=== PATIENT | male | born 1995 | race African-American/Black ===

== ENCOUNTER 2017-06-26 16:51 | Emergency (ER) | payer OTHER ==
--- NOTE | 2017-06-26 16:54 | PDOC ---
History of Present Illness <Priti Valerio - Last Filed: 06/26/17 17:25> - General History Source: Patient Exam Limitations: No Limitations - History of Present Illness Initial Comments: 06/26/17 17:29 21 y.o male with no significant past medical history, who presents to the emergency room complaining of right eye redness and pain that began after accidentally getting elbowed in the eye while playing basketball 2 days ago. The patient states that his eye has become progressively more painful and red over the past couple of days. The pain is worse with blinking and is exacerbated when exposed to light. The patient denies changes double vision, blurred vision, or any other changes in vision. Denies floaters. Denies any other injuries. Denies headache, lightheadedness. Allergies: NKA <Iraida Mckoy - Last Filed: 06/26/17 17:30> - General Chief Complaint: Eye Problem Stated Complaint: RIGHT EYE PAIN Past History <Priti Valerio - Last Filed: 06/26/17 17:25> <Iraida Mckoy - Last Filed: 06/26/17 17:30> - Past Medical History Allergies/Adverse Reactions: Allergies Allergy/AdvReac Type Severity Reaction Status Date / Time No Known Allergies Allergy Verified 06/26/17 16:52 Home Medications: Ambulatory Orders NK [No Known Home Medication] 06/26/17 Review of Systems - Review of Systems Able to Perform ROS?: Yes Comments:: 06/26/17 17:29 GENERAL/CONSTITUTIONAL: No fever or chills. No weakness. HEAD, EYES, EARS, NOSE AND THROAT: +right eye redness and irritation. No change in vision. No ear pain or discharge. No sore throat. GASTROINTESTINAL: No nausea, vomiting, diarrhea or constipation. GENITOURINARY: No dysuria, frequency, or change in urination. CARDIOVASCULAR: No chest pain or shortness of breath. RESPIRATORY: No cough, wheezing, or hemoptysis. MUSCULOSKELETAL: No joint or muscle swelling or pain. No neck or back pain. SKIN: No rash NEUROLOGIC: No headache, vertigo, loss of consciousness, or change in strength/ sensation. ENDOCRINE: No increased thirst. No abnormal weight change. HEMATOLOGIC/LYMPHATIC: No anemia, easy bleeding, or history of blood clots. ALLERGIC/IMMUNOLOGIC: No hives or skin allergy. <Iraida Mckoy - Last Filed: 06/26/17 17:30> *Physical Exam - Vital Signs Last Vital Signs Temp Pulse Resp BP Pulse Ox 98.7 F 57 L 15 145/86 100 06/26/17 16:52 06/26/17 16:52 06/26/17 16:52 06/26/17 16:52 06/26/17 16:52 - Physical Exam Comments: 06/26/17 17:29 GENERAL: Awake, alert, and fully oriented, in no acute distress HEAD: No signs of trauma EYES: 20/20 OD, 20/30 OS, EOMI, PERRLA, +conjunctiva injection OD, Fluorescence testing was negative for corneal abrasion. Eyelids were everted and no foreign bodies noted. No evidence of hyphema or hypopyon. ENT: Auricles normal inspection, hearing grossly normal, nares patent, oropharynx clear without exudates. Moist mucosa LUNGS: Breath sounds equal, clear to auscultation bilaterally. No wheezes, and no crackles EXTREMITIES: Normal range of motion, no edema. No clubbing or cyanosis. No cords , erythema, or tenderness BACK: No midline spinal tenderness in cervical/thoracic/lumbar region NEUROLOGICAL: Normal speech, cranial nerves intact, negative pronator drift, 5/ 5 strength in all 4 extremities, normal sensation to light touch in all 4 extremities, normal cerebellar exam, normal gait, normal reflexes and tone SKIN: Warm, Dry, normal turgor, no rashes or lesions noted. <Iraida Mckoy - Last Filed: 06/26/17 17:30> ED Treatment Course - Medications Given in the ED: ED Medications Discontinued Medications Generic Name Dose Route Start Last Admin Trade Name Freq PRN Reason Stop Dose Admin Fluorescein Sodium 1 ea 06/26/17 17:03 06/26/17 17:12 Fluorets - OD 06/26/17 17:04 1 ea ONCE ONE Administration Tetracaine HCl 1 drop 06/26/17 17:03 06/26/17 17:12 Tetravisc 0.5% Eye Drops - OD 06/26/17 17:04 1 drop ONCE ONE Administration <Iraida Mckoy - Last Filed: 06/26/17 17:30> Medical Decision Making - Medical Decision Making 06/26/17 17:25 21-year-old male presents with right eye pain after blunt trauma to the eye. Vitals unremarkable. Exam with normal visual acuity, conjunctival injection, and negative fluorescien testing. 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 Discussed the case with on-call welding machine operator gas Dr. Francis who can see the patient now for slit lamp testing (our slit lamp is not currently working). Discussed the plan with the patient who is in agreement. I discussed the physical exam findings, ancillary test results and final diagnoses with the patient. I answered all of the patient's questions. The patient was satisfied with the care received and felt comfortable with the discharge plan and treatment plan. The patient will call their primary care physician within 24 hours to arrange follow-up and will return to the Emergency Department with any new, persistent or worsening symptoms. <Priti Valerio - Last Filed: 06/26/17 17:25> *DC/Admit/Observation/Transfer - Discharge Dispostion Admit: No - Attestations Physician Attestion: 06/26/17 17:10 I, Dr. Priti Valerio MD, attest that this document has been prepared under my direction and personally reviewed by me in its entirety. I further attest, that it accurately reflects all work, treatment, procedures and medical decision -making performed by me. <Priti Valerio - Last Filed: 06/26/17 17:25> - Attestations Scribe Attestion: 06/26/17 17:29 Documentation prepared by SALLY Colby, acting as medical management specialist for Priti Valerio MD <Iraida Mckoy - Last Filed: 06/26/17 17:30> Diagnosis at time of Disposition: Photophobia of right eye, Eye pain - Discharge Dispostion Disposition: HOME Condition at time of disposition: Stable - Referrals Referrals: Radha Francis MD [Staff Physician] - - Patient Instructions Additional Instructions: Follow-up at Dr. Francis's office (ophthalmology) upon discharge from the emergency department. She is expecting you. Park your car in the upper parking lot. Return to the emergency department if you have any new, worsening or concerning symptoms.
[2017-06-26] MEDS ORDERED: FLUORESCEIN NA 1 EA STRIP ONE ×2 (17:02→17:10)
[2017-06-26] MEDS ORDERED: TETRACAINE 0.5% OPHTH SOLN 2 ML BOTTLE ONE ×2 (17:02→17:10)
[2017-06-26] MEDS ORDERED: TETRACAINE 0.5% HCL 0.6ML DROPPER.BOTTLE OD ONE (17:03)
[2017-06-26] MEDS ORDERED: FLUORESCEIN NA 1 EA STRIP OD ONE (17:03)
[2017-06-26 17:08] VITALS: BP 145/86; PULSE 57; TEMP 98.7; BMI 24.3
== END 2017-06-26 17:36 | disposition home or self-care (01) ==
LOC: FER 16:51
DX: H53.141 Visual discomfort, right eye (principal); H57.11 Ocular pain, right eye; W50.0XXA Accidental hit or strike by another person, initial encounter; Y93.89 Activity, other specified; Y92.9 Unspecified place or not applicable
CPT/HCPCS: 99282-25